=== PATIENT | male | born 1985 | race Two or more races ===

== ENCOUNTER 2024-12-02 16:38 | Emergency (ER) | payer MEDICAID, OTHER ==
[~2024-12-02] VITALS: Ht 170.2 cm; Wt 62.2 kg
[2024-12-02 16:55] VITALS: BP 112/72; PULSE 127; RESP 16; O2SAT 98
--- NOTE | 2024-12-02 17:00 | ED.PDOC ---
Musculoskeletal HPI Comments 38 Y M, presents to the ED with CC of right arm numbness. Patient states that he has been experiencing right arm numbness with associated limited range of motion x2 weeks; after falling asleep on a desk. Patient relays, that pain worsens with movement of right arm. Patient denies headache, chills, fever, or N/V/D. Chief Complaint: Upper Extremity Time Seen by MD: 16:50 Reviewed Notes: Nurses Notes, Medications, Allergies Allergies: Coded Allergies: NO KNOWN ALLERGIES (Unverified , 12/02/24) Information Source: Patient Mode of Arrival: Ambulatory Location: Right Timing: Weeks Prehospital treatment: None Severity: Moderate Able to Move Extremity: Yes Bear Weight: Limited Pain: Moderate Mechanism: None Circumstances: Spontaneous Onset of Symptoms: Spontaneous Symptoms: Swelling, Pain Associated signs and symptoms: Arm pain, Wrist pain, Numbness Past Medical History PAST MEDICAL HISTORY: Denies Surgical History: Denies all surgeries Family History Family History: Unknown Social History Smoker: Non-Smoker Alcohol: Denies ETOH Use Drugs: Denies Drug Use Constitutional: denies: chills, diaphoresis, fatigue, fever, malaise, sweats, weakness, others EENTM: denies: blurred vision, double vision, ear bleeding, ear discharge, ear drainage, ear pain, ear ringing, eye pain, eye redness, hearing loss, mouth pain, mouth swelling, nasal discharge, nose bleeding, nose congestion, nose pain, photophobia, tearing, throat pain, throat swelling, voice changes, others Respiratory: denies: cough, hemoptysis, orthopnea, SOB at rest, shortness of breath, SOB with excertion, stridor, wheezing, others Cardiovascular: denies: chest pain, dizzy spells, diaphoresis, Dyspnea on exertion, edema, irregular heart beat, left arm pain, lightheadedness, palpitations, PND, syncope, others Gastrointestinal: denies: abdomen distended, abdominal pain, blood streaked bowels, constipated, diarrhea, dysphagia, difficulty swallowing, hematemesis, melena, nausea, poor appetite, poor fluid intake, rectal bleeding, rectal pain, vomiting, others Genitourinary: denies: burning, dysuria, flank pain, frequency, hematuria, incontinence, penile discharge, penile sore, pain, testicle pain, testicle swelling, urgency, others Neurological: denies: dizziness, fainting, headache, left sided numbness, left sided weakness, numbness, paresthesia, pre-existing deficit, right sided numbness, right sided weakness, seizure, speech problems, tingling, tremors, weakness, others Musculoskeletal: reports: others (right arm pain); denies: back pain, gout, joint pain, joint swelling, muscle pain, muscle stiffness, neck pain Integumetry: denies: bruises, change in color, change in hair/nails, dryness, laceration, lesions, lumps, rash, wounds, others Allergic/Immunocompromised: denies: Difficulty Healing, Frequent Infections, Hives, Itching, others Hematologic/Lymphatic: denies: anemia, blood clots, easy bleeding, easy bruising, swollen glands, others Endocrine: denies: excessive hunger, excessive sweating, excessive thirst, excessive urination, flushing, intolerance to cold, intolerance to heat, unexplained weight gain, unexplained weight loss, others Psychiatric: denies: anxiety, bipolar disorder, depression, hopeless, panic disorder, schizophrenia, sleepless, suicidal, others All Other Systems: Reviewed and Negative Physical Exam General Appearance: No Apparent Distress, Normal HEENT: Normal ENT Inspection, Pharynx Normal, TMs Normal Neck: Full Range of Motion, Non-Tender, Normal, Normal Inspection Respiratory: Chest Non-Tender, Lungs Clear, No Accessory Muscle Use, No Respiratory Distress, Normal Breath Sounds Cardiovascular: No Edema, No JVD, No Murmur, No Gallop, Normal Peripheral Pulses, Regular Rate/Rhythm Breast Exam: Deferred Gastrointestinal: No Organomegaly, Non Tender, No Pulsatile Mass, Normal Bowel Sounds, Soft Genitalia: Deferred Pelvic: Deferred Rectal: Deferred Extremities: No calf tenderness, Normal capillary refill, Normal inspection, Normal range of motion, Non-tender, No pedal edema Musculoskeletal : Location: Right Extremity Location: Arm Apperance: Swelling, Limited ROM, Tenderness: Mild Neurologic: Alert, 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 Was a procedure done?: No Differential Diagnosis EXT Differential Diagnosis: Cellulitis, Sprain, Strain X-Ray, Labs, Meds, VS Vital Signs Date Time Temp Pulse Resp B/P (MAP) Pulse Ox O2 Delivery O2 Flow Rate FiO2 12/02/24 16:55 98.0 127 16 112/72 (85) 98 X-Ray, Labs, Meds, VS Comment Patient no answer for CT scan no answer for ultrasound no answer for vitals Presumed patient eloped Time of 1ST Reevaluation: 17:20 Reevaluation 1ST: Unchanged Patient Education/Counseling: Diagnosis, Treatment Family Education/Counseling: No Family Present Departure 1 Departure Time of Disposition: 20:47 Impression: Primary Impression: Right arm numbness Disposition: 07 LEFT AWOL/ELOPED Condition: Fair Discharged With: Self Critical Care Note Critical Care Time?: No Stability Stability form required: No Heart Score Heart Score: Heart Score Response (Comments) Value History N/A 0 EKG N/A 0 Age N/A 0 Risk Factors N/A 0 Troponin N/A 0 Total 0 I personally scribed for SAMANO,CHRISTOPHER E GEOPHYSICAL DATA TECHNICIAN ([email or web address]) on 12/02/24 at 17:00. Electronically submitted by Priti Zaragoza ([email or web address]). I personally scribed for SAMANO,CHRISTOPHER E GEOPHYSICAL DATA TECHNICIAN ([email or web address]) on 12/02/24 at 17:04. Electronically submitted by Priti Zaragoza ([email or web address]). I personally scribed for SAMANO,CHRISTOPHER E GEOPHYSICAL DATA TECHNICIAN ([email or web address]) on 12/02/24 at 17:06. Electronically submitted by Priti Zaragoza ([email or web address]). I personally scribed for SAMANO,CHRISTOPHER E GEOPHYSICAL DATA TECHNICIAN ([email or web address]) on 12/02/24 at 17:20. Electronically submitted by Priti Zaragoza ([email or web address]). SAMANO,CHRISTOPHER E GEOPHYSICAL DATA TECHNICIAN Dec 02, 2024 17:00
[2024-12-02] MEDS ORDERED: IBUP-1456 PO (23:48)
== END 2024-12-02 21:47 | disposition left against medical advice (07) ==
LOC: ER 16:38
DX: R20.0 Anesthesia of skin (principal)

== ENCOUNTER 2024-12-02 21:57 | Emergency (ER) | payer MEDICAID, OTHER ==
[~2024-12-02] VITALS: Ht 170.2 cm; Wt 62.3 kg
[2024-12-02 22:08] VITALS: BP 118/78; PULSE 111; RESP 20; TEMP 98.3; O2SAT 97
[2024-12-02] MEDS ORDERED: IBUP-1456 PO (23:48)
--- NOTE | 2024-12-02 23:49 | ED.PDOC ---
Musculoskeletal HPI Comments 38 YEAR OLD MALE PRESENTS TO ER WITH RIGHT WRIST COMPLAINT X TWO WEEKS. PATIENT REPORTS THAT HE HAS BEEN EXPERIENCING RIGHT WRIST DROP WITH NUMBNESS/TINGLING TO 1ST TWO DIGITS OF RIGHT HAND X2 WEEKS S/P SLEEPING ON HIS RIGHT FOREARM TWO WEEKS AGO. DENIES ANY CURRENT PAIN. DENIES USE OF MEDICATIONS FOR CURRENT SYMPTOMS. PATIENT PRESENTS TO ER AMBULATORY ON ARRIVAL, ALERT ORIENTED X4, WITH STEADY GAIT, IN NO DISTRESS. DENIES TRAUMA/INJURY OR ANY FURTHER SYMPTOMS/COMPLAINTS Chief Complaint: Upper Extremity Time Seen by MD: 22:17 Primary Care Provider: UNKNOWN Reviewed Notes: Nurses Notes, Medications, Allergies Allergies: Coded Allergies: NO KNOWN ALLERGIES (Unverified , 12/02/24) Home Meds Active Scripts Ibuprofen (Ibuprofen) 800 Mg Tab, 1 TAB PO TID PRN, #30 TAB 0 Refills Prov:AFBRICE BAER 12/02/24 Information Source: Patient Mode of Arrival: Ambulatory Past Medical History PAST MEDICAL HISTORY: Denies Surgical History: Hernia Repair Family History Family History: Unknown Social History Smoker: Non-Smoker Alcohol: Denies ETOH Use Drugs: Denies Drug Use Lives In: Home Constitutional: denies: chills, diaphoresis, fatigue, fever, malaise, sweats, weakness, others EENTM: denies: blurred vision, double vision, ear bleeding, ear discharge, ear drainage, ear pain, ear ringing, eye pain, eye redness, hearing loss, mouth pain, mouth swelling, nasal discharge, nose bleeding, nose congestion, nose pain, photophobia, tearing, throat pain, throat swelling, voice changes, others Respiratory: denies: cough, hemoptysis, orthopnea, SOB at rest, shortness of breath, SOB with excertion, stridor, wheezing, others Cardiovascular: denies: chest pain, dizzy spells, diaphoresis, Dyspnea on exertion, edema, irregular heart beat, left arm pain, lightheadedness, palpitations, PND, syncope, others Gastrointestinal: denies: abdomen distended, abdominal pain, blood streaked bowels, constipated, diarrhea, dysphagia, difficulty swallowing, hematemesis, melena, nausea, poor appetite, poor fluid intake, rectal bleeding, rectal pain, vomiting, others Genitourinary: denies: burning, dysuria, flank pain, frequency, hematuria, incontinence, penile discharge, penile sore, pain, testicle pain, testicle swelling, urgency, others Neurological: reports: others ( STATED IN HPI) Musculoskeletal: reports: others ( STATED IN HPI) Integumetry: denies: bruises, change in color, change in hair/nails, dryness, laceration, lesions, lumps, rash, wounds, others Allergic/Immunocompromised: denies: Difficulty Healing, Frequent Infections, Hives, Itching, others Hematologic/Lymphatic: denies: anemia, blood clots, easy bleeding, easy bruising, swollen glands, others Endocrine: denies: excessive hunger, excessive sweating, excessive thirst, excessive urination, flushing, intolerance to cold, intolerance to heat, unexplained weight gain, unexplained weight loss, others Psychiatric: denies: anxiety, bipolar disorder, depression, hopeless, panic disorder, schizophrenia, sleepless, suicidal, others Physical Exam General Appearance: No Apparent Distress HEENT: PERRL/EOMI Neck: Full Range of Motion, Non-Tender, Normal Respiratory: Chest Non-Tender, Lungs Clear, No Accessory Muscle Use, No Respiratory Distress, Normal Breath Sounds Cardiovascular: No Murmur, No Gallop, Regular Rate/Rhythm Breast Exam: Deferred Gastrointestinal: NOT DONE Genitalia: Deferred Pelvic: Deferred Rectal: Deferred Extremities: Normal capillary refill Musculoskeletal : Extremity Location: Wrist (RIGHT WRIST DROP NOTED ON RIGHT WITH MILD SHARP SENSORY LOSS NOTED TO RIGHT 1ST AND 2ND DIGITS. 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 Was a procedure done?: No Sedation Sedation?: No Differential Diagnosis EXT Differential Diagnosis: Fracture, Dislocation, Neurovascular injury X-Ray, Labs, Meds, VS Vital Signs Date Time Temp Pulse Resp B/P (MAP) Pulse Ox O2 Delivery O2 Flow Rate FiO2 12/02/24 22:08 98.3 111 20 118/78 (91) 97 RIGHT WRIST SPLINT APPLIED WITH 60 OF DORSIFLEXION ADVISED ON CONTINUED USE OF RIGHT WRIST SPLINT FOR 2-4 MONTHS/DISCONTINUE SOONER IF SYMPTOMS FULLY RESOLVE FOLLOW UP WITH PCP AND NEUROLOGY WITHIN ONE WEEK PATIENT ALERT AND ORIENTED X4 PRIOR TO DISCHARGE. PATIENT VERBALIZED UNDERSTANDING AND AGREEABLE WITH CURRENT PLAN OF CARE ADVISED TO RETURN TO ER IMMEDIATELY IF SYMPTOMS WORSEN Time of 1ST Reevaluation: 23:20 Reevaluation 1ST: N/A Patient Education/Counseling: Diagnosis, Treatment, Prognosis, Need For Follow Up Family Education/Counseling: No Family Present Departure 1 Departure Time of Disposition: 23:42 Impression: Primary Impression: Neuropathy of right radial nerve Disposition: HOME / SELF CARE / HOMELESS Condition: Stable e-Prescriptions Ibuprofen (Ibuprofen) 800 Mg Tab 1 TAB PO TID PRN, #30 TAB 0 Refills Prov: FARBICE BAER 12/02/24 Discharged With: Self Critical Care Note Critical Care Time?: No Stability Stability form required: No Heart Score Heart Score: Heart Score Response (Comments) Value History N/A 0 EKG N/A 0 Age N/A 0 Risk Factors N/A 0 Troponin N/A 0 Total 0 FABRICE BAER Dec 02, 2024 23:49
== END 2024-12-03 00:03 | disposition home or self-care (01) ==
LOC: ER 21:57
DX: G56.31 Lesion of radial nerve, right upper limb (principal); Z98.890 Other specified postprocedural states
CPT/HCPCS: 29125